=== PATIENT | female | born 1990 | race Caucasian/White ===

== ENCOUNTER 2017-02-10 16:57 | Emergency (ER) | payer BC ==
[2017-02-10 17:13] VITALS: O2SAT 97
[2017-02-10] MEDS ORDERED: AZITHROMYCIN 250 MG TAB PO ONE (17:57)
[2017-02-10] MEDS ORDERED: predniSONE 20 MG TAB PO ONE (17:57)
--- NOTE | 2017-02-10 18:00 | ED.PDOC ---
History of Present Illness - General Chief Complaint: Respiratory Problem Stated Complaint: cough, sorethroat and fever Time Seen by Provider: 02/10/17 17:07 Source: patient Exam Limitations: no limitations - History of Present Illness Initial Comments: the patient's a 26-year-old female presenting to the emergency room secondary to 2 weeks of symptoms of cough congestion runny nose and sinus pressure. She is also reported fevers up to 101. No chest pain. No shortness of breath. She has had poor sleep. She has had increased pressure in her ears. No hemoptysis. No chest pain. Timing/Duration: 1 week Severity: moderate Improving Factors: nothing Worsening Factors: nothing Associated Symptoms: cough, fever/chills, malaise Allergies/Adverse Reactions: Allergies Flu Virus Vaccine Allergy (Verified 02/10/17 17:14) Sulfa Antibiotics Allergy (Verified 02/10/17 17:14) Home Medications: Ambulatory Orders Esomeprazole Magnesium [Nexium] 40 mg PO DAILY 11/10/13 Sertraline HCl [Zoloft] 200 mg PO BEDTIME 11/10/13 Clonazepam 1 mg PO BID 02/28/15 Hydroxychloroquine [Plaquenil] 200 mg PO BID 02/28/15 Trazodone HCl 100 PRN 02/28/15 ALPRAZolam [Xanax] 0.5 mg PO TID #15 tab 04/11/15 Azithromycin 500 mg PO DAILY #7 tab 02/10/17 predniSONE [Prednisone] 20 mg PO DAILY #3 tab 02/10/17 Review of Systems - Review of Systems Constitutional: States: fever, malaise EENTM: States: nose congestion, throat pain Respiratory: States: cough Cardiology: States: no symptoms reported Gastrointestinal/Abdominal: States: no symptoms reported Genitourinary: States: no symptoms reported Musculoskeletal: States: no symptoms reported Skin: States: no symptoms reported Neurological: States: no symptoms reported Endocrine: States: no symptoms reported All other Systems: No Change from Baseline Past Medical History (General) - Patient Medical History Hx Seizures: No Hx Stroke: No Hx Dementia: No Hx Asthma: No Hx of COPD: No Hx Cardiac Disorders: No Hx Congestive Heart Failure: No Hx Pacemaker: No Hx Hypertension: No Hx Thyroid Disease: No Hx Diabetes: No Hx Gastroesophageal Reflux: No Hx Renal Disease: No Hx Cancer: No Hx of HIV: No Hx Hepatitis C: No Hx MRSA: No Surgical History: appendectomy, cholecystectomy, Hysterectomy - Vaccination History Hx Tetanus, Diphtheria Vaccination: No Hx Influenza Vaccination: No - allergy Hx Pneumococcal Vaccination: No - Social History Hx Tobacco Use: Yes Hx Chewing Tobacco Use: No Hx Alcohol Use: Yes Hx Substance Use: No Hx Substance Use Treatment: No Hx Depression: Yes Hx Physical Abuse: No Hx Emotional Abuse: No Hx Suspected Abuse: No - Female History Patient is a Female of Child Bearing Age (10 -59 yrs old): No Hx Last Menstrual Period: 05/17/14 Patient : No Family Medical History - Family History Mother Family History: No Known Physical Exam - Physical Exam General Appearance: Alert, Comfortable, No apparent distress Eye Exam: bilateral normal Ears, Nose, Throat: hearing grossly normal, nasal congestion, pharyngeal erythema Neck: full range of motion, supple Respiratory: no respiratory distress, no accessory muscle use, rhonchi Cardiovascular/Chest: normal peripheral pulses, regular rate, rhythm, no edema Peripheral Pulses: radial,right: 2+, radial,left: 2+ Gastrointestinal/Abdominal: non tender, soft Rectal Exam: deferred Back Exam: normal inspection, no CVA tenderness, no vertebral tenderness Extremity: non-tender, normal inspection, no pedal edema, no calf tenderness, normal capillary refill Neurologic: alert, normal mood/affect, oriented x 3 Skin Exam: normal color Comments: Vital Signs - 24 hr 02/10/17 02/10/17 17:02 17:14 Temperature 98.4 F Pulse Rate [ 84 pulse ox] Respiratory 20 20 Rate Blood Pressure 100/66 [Left Arm] O2 Sat by Pulse 97 Oximetry Progress - Progress Progress: 02/10/17 17:59 the patient is a 26-year-old female presenting with what appears to be a bronchitis and sinusitis of a couple weeks' duration. The patient is going to be placed on 3 days of oral prednisone along with 7 days of oral azithromycin. She can additionally take Motrin 3 times daily for the next couple of days with food and take Claritin-D twice daily for the next 4-5 days. She needs to keep well hydrated. A humidifier at night may also help reduce symptoms. ER warnings were given for any worsening. She should follow up with her primary care doctor before the next weekend. - Results/Orders Results/Orders: rapid flu and rapid strep were negative. Departure - Departure Clinical Impression: Bronchitis Sinusitis, acute maxillary Qualifiers: Recurrence: not specified as recurrent Qualified Code(s): J01.00 - Acute maxillary sinusitis, unspecified Disposition: Discharge to Home or Self Care Condition: Fair Departure Forms: ED Discharge - Pt. Copy, Patient Portal Self Enrollment Instructions: DI for Acute Bronchitis, DI for Sinusitis Diet: regular diet Activity: increase activity as tolerated Referrals: Deuce Espinoza III, MD [Primary Care Provider] - 1-5 Days Prescriptions: Azithromycin 500 mg PO DAILY #7 tab predniSONE [Prednisone] 20 mg PO DAILY #3 tab Home Medications: Ambulatory Orders Esomeprazole Magnesium [Nexium] 40 mg PO DAILY 11/10/13 Sertraline HCl [Zoloft] 200 mg PO BEDTIME 11/10/13 Clonazepam 1 mg PO BID 02/28/15 Hydroxychloroquine [Plaquenil] 200 mg PO BID 02/28/15 Trazodone HCl 100 PRN 02/28/15 ALPRAZolam [Xanax] 0.5 mg PO TID #15 tab 04/11/15 Azithromycin 500 mg PO DAILY #7 tab 02/10/17 predniSONE [Prednisone] 20 mg PO DAILY #3 tab 02/10/17 Additional Instructions: the patient is a 26-year-old female presenting with what appears to be a bronchitis and sinusitis of a couple weeks' duration. The patient is going to be placed on 3 days of oral prednisone along with 7 days of oral azithromycin. She can additionally take Motrin 3 times daily for the next couple of days with food and take Claritin-D twice daily for the next 4-5 days. She needs to keep well hydrated. A humidifier at night may also help reduce symptoms. ER warnings were given for any worsening. She should follow up with her primary care doctor before the next weekend.
[2017-02-10 18:17] VITALS: BP 110/78; TEMP 98
== END 2017-02-10 18:17 | disposition home or self-care (01) ==
LOC: ER 16:57
DX: J40 Bronchitis, not specified as acute or chronic (principal); J01.00 Acute maxillary sinusitis, unspecified; Z87.891 Personal history of nicotine dependence; Z88.2 Allergy status to sulfonamides; Z88.7 Allergy status to serum and vaccine
CPT/HCPCS: 87070; 87502; 87651; J7512; Q0144

== ENCOUNTER 2018-11-02 17:15 | Emergency (ER) | payer BC, OTHER ==
--- NOTE | 2018-11-02 18:59 | ED.PDOC ---
History of Present Illness - General Chief Complaint: ENT Problem Stated Complaint: sore throat Time Seen by Provider: 11/02/18 18:36 Source: patient Exam Limitations: no limitations - History of Present Illness Initial Comments: patient comes in today with sore throat times one day. No fever or chills. No nausea or vomiting. No nasal congestion or cough. Her daughter however has recurrent strep infections and she is also being seen in the ER with a high fever and bad sore throat. Patient is otherwise healthy and has no medical problems. She is allergic to sulfa and flu vaccine. Timing/Duration: this morning Severity: moderate Prearrival Treatment: no prearrival treatment Improving Factors: nothing Worsening Factors: nothing Associated Symptoms: denies symptoms Allergies/Adverse Reactions: Allergies Flu Virus Vaccine Allergy (Verified 02/10/17 17:14) Sulfa Antibiotics Allergy (Verified 02/10/17 17:14) Home Medications: Ambulatory Orders Esomeprazole Magnesium [Nexium] 40 mg PO DAILY 11/10/13 Sertraline HCl [Zoloft] 200 mg PO BEDTIME 11/10/13 Clonazepam 1 mg PO BID 02/28/15 Hydroxychloroquine [Plaquenil] 200 mg PO BID 02/28/15 Trazodone HCl 100 PRN 02/28/15 ALPRAZolam [Xanax] 0.5 mg PO TID #15 tab 04/11/15 Azithromycin 500 mg PO DAILY #7 tab 02/10/17 predniSONE [Prednisone] 20 mg PO DAILY #3 tab 02/10/17 Review of Systems - Review of Systems Constitutional: States: no symptoms reported. Denies: chills, fever, malaise EENTM: States: throat pain. Denies: ear pain, nose congestion Respiratory: States: no symptoms reported. Denies: cough, short of breath, wheezing Cardiology: States: no symptoms reported. Denies: chest pain, edema, palpitations Gastrointestinal/Abdominal: States: no symptoms reported. Denies: abdominal pain, nausea, vomiting Musculoskeletal: States: no symptoms reported Past Medical History (General) - Patient Medical History Hx Seizures: No Hx Stroke: No Hx Dementia: No Hx Asthma: No Hx of COPD: No Hx Cardiac Disorders: No Hx Congestive Heart Failure: No Hx Pacemaker: No Hx Hypertension: No Hx Thyroid Disease: No Hx Diabetes: No Hx Gastroesophageal Reflux: No Hx Renal Disease: No Hx Cancer: No Hx of HIV: No Hx Hepatitis C: No Hx MRSA: No - Vaccination History Hx Tetanus, Diphtheria Vaccination: No Hx Influenza Vaccination: No - allergy Hx Pneumococcal Vaccination: No - Social History Hx Tobacco Use: Yes Hx Chewing Tobacco Use: No Hx Alcohol Use: Yes Hx Substance Use: No Hx Substance Use Treatment: No Hx Depression: Yes Hx Physical Abuse: No Hx Emotional Abuse: No Hx Suspected Abuse: No - Female History Hx Last Menstrual Period: 05/17/14 Patient : No Family Medical History - Family History Mother Family History: No Known Physical Exam - Physical Exam General Appearance: Alert, Comfortable, No apparent distress Eye Exam: bilateral normal Ear Exam: bilateral ear: TM normal Nasal Exam: normal inspection Throat Exam: pharynx swelling, pharynx tenderness Neck: non-tender, full range of motion, supple Cardiovascular/Respiratory: regular rate, rhythm, no M/R/G, normal peripheral pulses, no JVD, normal breath sounds, no respiratory distress Abdominal Exam: non-tender Neurologic: alert, oriented x 3 Skin Exam: normal color Progress - Results/Orders Results/Orders: 11/02/18 18:47 STREP A SCREEN CULTURE Stat Laboratory Results Group A Strep Rapid Negative (NEGATIVE) 11/02/18 18:47 Departure - Departure Clinical Impression: Pharyngitis Qualifiers: Pharyngitis/tonsillitis etiology: unspecified etiology Qualified Code(s): J02.9 - Acute pharyngitis, unspecified Disposition: Discharge to Home or Self Care Departure Forms: ED Discharge - Pt. Copy, Patient Portal Self Enrollment Instructions: DI for Ear Pain-Adult Referrals: WOODY ELLIOTT IV, [employer] RIFLE CREWMEMBER [Primary Care Provider] - 1-2 Weeks Home Medications: Ambulatory Orders Esomeprazole Magnesium [Nexium] 40 mg PO DAILY 11/10/13 Sertraline HCl [Zoloft] 200 mg PO BEDTIME 11/10/13 Clonazepam 1 mg PO BID 02/28/15 Hydroxychloroquine [Plaquenil] 200 mg PO BID 02/28/15 Trazodone HCl 100 PRN 02/28/15 ALPRAZolam [Xanax] 0.5 mg PO TID #15 tab 04/11/15 Azithromycin 500 mg PO DAILY #7 tab 02/10/17 predniSONE [Prednisone] 20 mg PO DAILY #3 tab 02/10/17 Additional Instructions: OTC Tylenol and Motrin for pain, salt water gargles and follow up with PCP in 2- 3 days for culture results. No work until no fever x 24 hours
[2018-11-02 19:27] VITALS: BP 122/94; TEMP 98.3; O2SAT 99
== END 2018-11-02 19:25 | disposition home or self-care (01) ==
LOC: ER 17:15
DX: J03.90 Acute tonsillitis, unspecified (principal); F32.9 Major depressive disorder, single episode, unspecified; Z87.891 Personal history of nicotine dependence; Z88.2 Allergy status to sulfonamides; Z88.7 Allergy status to serum and vaccine; Z79.899 Other long term (current) drug therapy

== ENCOUNTER 2020-04-15 09:34 | Emergency (ER) | payer OTHER ==
[2020-04-15] MEDS ORDERED: DEXAMETHASONE INJ 10 MG/ML VIAL PO ONE (09:43)
[2020-04-15] MEDS ORDERED: diphenhydrAMINE HCL 25 MG CAP PO ONE ×2 (09:43→10:16)
--- NOTE | 2020-04-15 09:51 | ED.PDOC ---
History of Present Illness - General Time Seen by Provider: 04/15/20 09:38 Source: patient, RN notes reviewed, Vital Signs reviewed, old records Exam Limitations: no limitations - History of Present Illness Initial Comments: 30 yo otherwise healthy F comes in after she drank an energy drink with guava. states she last had guava 10 years ago, at that time felt like her throat was closing up. Did not have any intervention at that time. Symptoms improved on own. no chest pain, feels short of breath. feels flushed. no new medications, no new detergents. no hives. Timing/Duration: 1/2 hour Severity: mild Associated Symptoms: shortness of breath Allergies/Adverse Reactions: Allergies Flu Virus Vaccine Allergy (Verified 02/10/17 17:14) Guava Flavor Allergy (Verified 04/15/20 10:00) Methotrexate Allergy (Verified 05/24/19 15:25) Sulfasalazine Allergy (Verified 05/24/19 15:25) Home Medications: Ambulatory Orders Sertraline HCl [Zoloft] 200 mg PO BEDTIME 11/10/13 Buspirone HCl [Buspirone Hydrochloride] 10 mg PO BID 05/24/19 Prazosin HCl 5 mg PO DAILY 05/24/19 Progesterone Micronized [Progesterone] 200 mg PO DAILY 05/24/19 Thyroid [Community Resource Officer Thyroid 60] 60 mg PO DAILY 05/24/19 Trazodone HCl [Trazodone Hydrochloride] 300 mg PO BEDTIME 05/24/19 Review of Systems - Review of Systems Constitutional: Denies: chills, fever, malaise EENTM: Denies: blurred vision, double vision, throat swelling, mouth swelling Respiratory: States: short of breath. Denies: cough Cardiology: Denies: chest pain, palpitations Gastrointestinal/Abdominal: Denies: abdominal pain, diarrhea, nausea, vomiting Musculoskeletal: Denies: muscle pain Skin: States: rash - flushed Neurological: Denies: headache, numbness, weakness Endocrine: Denies: unexplained weight loss Hematologic/Lymphatic: Denies: easy bleeding, easy bruising Past Medical History (General) - Patient Medical History Hx Seizures: No Hx Stroke: No Hx Dementia: No Hx Asthma: No Hx of COPD: No Hx Cardiac Disorders: No Hx Congestive Heart Failure: No Hx Pacemaker: No Hx Hypertension: Yes Hx Thyroid Disease: No Hx Diabetes: No Hx Gastroesophageal Reflux: No Hx Renal Disease: No Hx Cancer: Yes - Cervical,Uterine Hx of HIV: No Hx Hepatitis C: No Hx MRSA: No - Vaccination History Hx Tetanus, Diphtheria Vaccination: No Hx Influenza Vaccination: No Hx Pneumococcal Vaccination: No - Social History Hx Tobacco Use: Yes Hx Chewing Tobacco Use: No Hx Alcohol Use: Yes Hx Substance Use: Yes Hx Substance Use Treatment: No Hx Depression: No Hx Physical Abuse: No Hx Emotional Abuse: No Hx Suspected Abuse: No - Female History Hx Last Menstrual Period: 05/17/14 Patient : No Family Medical History - Family History Mother Family History: No Known Physical Exam - Physical Exam General Appearance: Alert, Comfortable, No apparent distress, Well Developed, Well Groomed, Well Hydrated, Well Nourished Eye Exam: bilateral normal Ears, Nose, Throat: hearing grossly normal, normal ENT inspection, normal pharynx Neck: non-tender, full range of motion, supple, normal inspection, carotid bruit Respiratory: chest non-tender, lungs clear, normal breath sounds, no respiratory distress, no accessory muscle use Cardiovascular/Chest: no edema, no gallop, tachycardia - HR 105 Peripheral Pulses: radial,right: 2+, radial,left: 2+ Gastrointestinal/Abdominal: normal bowel sounds, non tender, soft Rectal Exam: deferred Back Exam: normal inspection Extremity: normal range of motion, non-tender, normal inspection, no pedal edema Neurologic: no motor/sensory deficits, alert, normal mood/affect Skin Exam: normal color, warm/dry, other - no evidence of hives. Progress - Progress Progress: 04/15/20 09:52 Differenital diagnosis: adverse reaction to energy drink/caffeine, allergic reaction, contact dermatitis, anxiety, others considered. given PO benadryl, famotidine, and Dexamethasone. will obs. 04/15/20 09:52 04/15/20 10:17 HR 85, resting comfortably. symptoms improved. I feel most of her symptoms are just adverse reaction to energy drink, recommend avoiding energy drinks in the future. The data reviewed when caring for this patient included: nurse notes, prior records, etc. The history and assessments from nurses notes were reviewed and considered, and the patient's home medication list was also reviewed and considered. My assessment and the results of testing completed here in the ED were discussed with the patient/family. All questions were answered, and they express understanding of my assessment and the plan. They have been instructed to return if their symptoms worsen, and have been asked to follow up with their primary care physician to recheck today's presenting complaint. return precautions given. patient discharged home in stable condition. Holley Colon DO #[id number] 04/15/20 10:22 04/15/20 10:23 Departure - Departure Clinical Impression: Allergic reaction Qualifiers: Encounter type: initial encounter Qualified Code(s): T78.40XA - Allergy, unspecified, initial encounter Time of Disposition: 10:16 Disposition: Discharge to Home or Self Care Instructions: Food Allergy Diet: resume usual diet Activity: increase activity as tolerated Referrals: WOODY ELLIOTT IV CLIENT ACCOUNT MANAGER [Primary Care Provider] - 1-2 Days Home Medications: Ambulatory Orders Sertraline HCl [Zoloft] 200 mg PO BEDTIME 11/10/13 Buspirone HCl [Buspirone Hydrochloride] 10 mg PO BID 05/24/19 Prazosin HCl 5 mg PO DAILY 05/24/19 Progesterone Micronized [Progesterone] 200 mg PO DAILY 05/24/19 Thyroid [Community Resource Officer Thyroid 60] 60 mg PO DAILY 05/24/19 Trazodone HCl [Trazodone Hydrochloride] 300 mg PO BEDTIME 05/24/19
[2020-04-15 09:59] VITALS: O2SAT 97
[2020-04-15] MEDS ORDERED: FAMOTIDINE 20 MG TAB PO ONE (10:20)
[2020-04-15 10:46] VITALS: BP 118/89; TEMP 98
== END 2020-04-15 10:35 | disposition home or self-care (01) ==
LOC: ER 09:34
DX: T78.1XXA Other adverse food reactions, not elsewhere classified, initial encounter (principal); R06.02 Shortness of breath; R09.89 Other specified symptoms and signs involving the circulatory and respiratory systems; I10 Essential (primary) hypertension; Z85.42 Personal history of malignant neoplasm of other parts of uterus; Z85.41 Personal history of malignant neoplasm of cervix uteri; Z79.899 Other long term (current) drug therapy; Z88.7 Allergy status to serum and vaccine; Z88.8 Allergy status to other drugs, medicaments and biological substances; Z91.018 Allergy to other foods